=== PATIENT | female | born 1980 | race American Indian/Alaskan Native ===

== ENCOUNTER 2022-06-17 03:49 | Emergency (ER) | payer BC, OTHER | END 2022-06-17 04:35 | disposition home or self-care (01) | LOC: CC.ED 03:49 | DX: S82.831A Other fracture of upper and lower end of right fibula, initial encounter for closed fracture (principal); Z88.0 Allergy status to penicillin; W19.XXXA Unspecified fall, initial encounter | CPT/HCPCS: 73610-RT; 99283 ==